=== PATIENT | female | born 1970 | race Caucasian/White ===

== ENCOUNTER 2019-07-07 08:09 | Emergency (ER) | payer BC ==
--- NOTE | 2019-07-07 08:47 | ERPHSYRPT ---
- History of Present Illness Time Seen by Provider: 07/07/19 08:30 Source: patient, family Exam Limitations: no limitations Patient Subjective Stated Complaint: Pt states "I have been feeling off for awhile, I am having night sweats and my sugar has been all wonky." Triage Nursing Assessment: Pt presented alert and oriented X 3, skin pwd PT ambulates with an upright steady gait, able to speak in clear full sentences. Pt in no apparent respiratory distress. Physician History: 48 y/o white female presents with one month h/o feeling weak. this is not how she normally feels. pt lost 60 lbs on a keto diet. last week she reintroduced carbohydrates into her diet. pt denies depression. denies medication use. denies pain of any type. she does not have a pcp. she denies blood loss. she denies soa. Timing/Duration: week(s) (4) Severity: mild Associated Symptoms: weakness, No nausea, No vomiting, No abdominal pain, No shortness of breath, No chest pain, No syncope Allergies/Adverse Reactions: No Known Drug Allergies Allergy (Unverified 07/07/19 08:23) Home Medications: No Reportable Medications [No Reported Medications] 07/07/19 [History] Hx Tetanus, Diphtheria Vaccination/Date Given: No Hx Influenza Vaccination/Date Given: Yes Hx Pneumococcal Vaccination/Date Given: No Immunizations Up to Date: Yes - Review of Systems Constitutional: Weakness Eyes: No Symptoms Ears, Nose, & Throat: No Symptoms Respiratory: No Symptoms Cardiac: No Symptoms Abdominal/Gastrointestinal: No Symptoms Genitourinary Symptoms: No Symptoms Musculoskeletal: No Symptoms Skin: No Symptoms Neurological: No Symptoms Psychological: No Symptoms Endocrine: No Symptoms Hematologic/Lymphatic: No Symptoms Immunological/Allergic: No Symptoms All Other Systems: Reviewed and Negative - Past Medical History Pertinent Past Medical History: No Neurological History: No Pertinent History ENT History: No Pertinent History Cardiac History: No Pertinent History Respiratory History: No Pertinent History Endocrine Medical History: No Pertinent History Musculoskeletal History: No Pertinent History GI Medical History: No Pertinent History History: No Pertinent History Psycho-Social History: No Pertinent History Female Reproductive Disorders: No Pertinent History - Past Surgical History Past Surgical History: Yes Neuro Surgical History: No Pertinent History Cardiac: No Pertinent History Respiratory: No Pertinent History Gastrointestinal: No Pertinent History Genitourinary: No Pertinent History Musculoskeletal: No Pertinent History Female Surgical History: No Pertinent History Other Surgical History: c section - Social History Smoking Status: Current every day smoker How long have you smoked: years Exposure to second hand smoke: Yes Drug Use: none Patient Lives Alone: No - Female History Hx Last Menstrual Period: menopause Hx Now: No - Nursing Vital Signs Nursing Vital Signs: Initial Vital Signs Temperature 97.9 F 07/07/19 08:18 Pulse Rate 92 H 07/07/19 08:18 Respiratory Rate 16 07/07/19 08:18 Blood Pressure 134/89 07/07/19 08:18 O2 Sat by Pulse Oximetry 100 07/07/19 08:18 Pain Scale Pain Intensity 0 - Physical Exam General Appearance: no apparent distress, alert, anxiety Eye Exam: PERRL/EOMI, eyes nml inspection Ears, Nose, Throat Exam: normal ENT inspection, moist mucous membranes Neck Exam: normal inspection, non-tender, supple, full range of motion Respiratory Exam: normal breath sounds, lungs clear, airway intact, No chest tenderness, No respiratory distress Cardiovascular Exam: regular rate/rhythm, normal heart sounds, normal peripheral pulses Gastrointestinal/Abdomen Exam: soft, normal bowel sounds, No tenderness Pelvic Exam: not done Rectal Exam: not done Back Exam: normal inspection, normal range of motion, No CVA tenderness, No vertebral tenderness Extremity Exam: normal inspection, normal range of motion, pelvis stable Neurologic Exam: alert, oriented x 3, cooperative, 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 Skin Exam: normal color, warm, dry Lymphatic Exam: No adenopathy SpO2 Interpretation: normal SpO2: 100 O2 Delivery: Room Air - Course Nursing assessment & vital signs reviewed: Yes EKG Interpreted by Me: RATE (78), Sinus Rhythm, NORMAL AXIS, NORMAL INTERVALS, NORMAL QRS, Other (no comparison ekg) Ordered Tests: Active Orders 24 hr Category Date Time Status [employer] STAT Care 07/07/19 08:51 Active EKG-ER Only STAT Care 07/07/19 08:50 Active IV Insertion STAT Care 07/07/19 08:50 Active Pulse Oximetry (ED) STAT Care 07/07/19 08:50 Active CBC W DIFF Stat Lab 07/07/19 08:55 Completed CMP Stat Lab 07/07/19 08:55 Completed HCG,QUALITATIVE URINE Stat Lab 07/07/19 09:06 Completed NT PRO BNP Stat Lab 07/07/19 08:55 Completed TSH [TSH, 3RD Generation] Stat Lab 07/07/19 08:55 Completed UA W/RFX UR CULTURE Stat Lab 07/07/19 09:24 Completed Urine Triage Profile Stat Lab 07/07/19 09:24 Completed Medication Summary Discontinued Medications Generic Name Dose Route Start Last Admin Trade Name Driss PRN Reason Stop Dose Admin Sodium Chloride 1,000 mls @ 999 mls/hr 07/07/19 08:50 07/07/19 10:08 Sodium Chloride 0.9% 1000 Ml IV 07/07/19 09:50 Infused .Q1H1M STA Infusion Sodium Chloride Confirm 07/07/19 09:03 Sodium Chloride 0.9% 1000 Ml Administered 07/07/19 09:04 Dose 1,000 mls @ ud .ROUTE .[facility] Lab/Rad Data: Laboratory Result Diagrams 07/07/19 08:55 07/07/19 08:55 Laboratory Results 07/07/19 07/07/19 07/07/19 Range/Units 09:24 09:24 09:06 WBC (4.0-10.5) K/mm3 RBC (4.1-5.4) M/mm3 Hgb (12.0-16.0) gm/dl Hct (35-47) % MCV (78-100) fl MCH (26-32) pg MCHC (32-36) g/dl RDW (11.5-14.0) % Plt Count (150-450) K/mm3 MPV (7.5-11.0) fl Gran % (36.0-66.0) % Eos # (Auto) (0-0.5) Absolute Lymphs (auto) (1.0-4.6) Absolute Monos (auto) (0.0-1.3) Lymphocytes % (24.0-44.0) % Monocytes % (0.0-12.0) % Eosinophils % (0.00-5.0) % Basophils % (0.0-0.4) % Absolute Granulocytes (1.4-6.9) Basophils # (0-0.4) Sodium (137-145) mmol/L Potassium (3.5-5.1) mmol/L Chloride (98-107) mmol/L Carbon Dioxide (22-30) mmol/L Anion Gap (5-15) MEQ/L BUN (7-17) mg/dL Creatinine (0.52-1.04) mg/dL Estimated GFR ML/MIN Glucose (74-106) mg/dL Calcium (8.4-10.2) mg/dL Total Bilirubin (0.2-1.3) mg/dL AST (14-36) U/L ALT (0-35) U/L Alkaline Phosphatase (38-126) U/L NT-Pro-B Natriuret Pep (0-450) pg/mL Serum Total Protein (6.3-8.2) g/dL Albumin (3.5-5.0) g/dL TSH 3rd Generation (0.47-4.68) mIU/L Urine Color YELLOW (YELLOW) Urine Appearance CLEAR (CLEAR) Urine pH 6.0 (5-6) Ur Specific Kell 1.010 (1.005-1.025) Urine Protein NEGATIVE (Negative) Urine Ketones MODERATE (NEGATIVE) Urine Blood NEGATIVE (0-5) Fig[place]ero[place]/ul Urine Nitrite NEGATIVE (NEGATIVE) Urine Bilirubin NEGATIVE (NEGATIVE) Urine Urobilinogen NORMAL (0-1) mg/dL Ur Leukocyte Esterase TRACE (NEGATIVE) Urine WBC (Auto) 0-2 (0-5) /HPF Urine RBC (Auto) 0-2 (0-2) /HPF U Epithel Cells (Auto) FEW (FEW) /HPF Urine Bacteria (Auto) FEW (NEGATIVE) /HPF Urine Mucus (Auto) MODERATE (NEGATIVE) /HPF Urine Culture Reflexed NO (NO) Urine Glucose NEGATIVE (NEGATIVE) mg/dL Urine HCG, Qual NEGATIVE (Negative) Urine Opiates Level NEGATIVE (NEGATIVE) Ur Methadone NEGATIVE (NEGATIVE) Urine Barbiturates NEGATIVE (NEGATIVE) Ur Phencyclidine (PCP) NEGATIVE (NEGATIVE) Urine Amphetamine NEGATIVE (NEGATIVE) U Benzodiazepine Level NEGATIVE (NEGATIVE) Urine Cocaine NEGATIVE (NEGATIVE) Urine Marijuana (THC) NEGATIVE (NEGATIVE) 07/07/19 07/07/19 07/07/19 Range/Units 08:55 08:55 08:55 WBC 9.4 (4.0-10.5) K/mm3 RBC 4.23 (4.1-5.4) M/mm3 Hgb 13.2 (12.0-16.0) gm/dl Hct 39.3 (35-47) % MCV 92.9 (78-100) fl MCH 31.2 (26-32) pg MCHC 33.6 (32-36) g/dl RDW 15.0 H (11.5-14.0) % Plt Count 263 (150-450) K/mm3 MPV 9.7 H (7.5-11.0) fl Gran % 74.3 H (36.0-66.0) % Eos # (Auto) 0.16 (0-0.5) Absolute Lymphs (auto) 1.64 (1.0-4.6) Absolute Monos (auto) 0.55 (0.0-1.3) Lymphocytes % 17.5 L (24.0-44.0) % Monocytes % 5.9 (0.0-12.0) % Eosinophils % 1.7 (0.00-5.0) % Basophils % 0.6 (0.0-0.4) % Absolute Granulocytes 6.94 H (1.4-6.9) Basophils # 0.06 (0-0.4) Sodium 141 (137-145) mmol/L Potassium 3.5 (3.5-5.1) mmol/L Chloride 110 H (98-107) mmol/L Carbon Dioxide 27 (22-30) mmol/L Anion Gap 7.5 (5-15) MEQ/L BUN 7 (7-17) mg/dL Creatinine 0.50 L (0.52-1.04) mg/dL Estimated GFR > 60.0 ML/MIN Glucose 109 H (74-106) mg/dL Calcium 9.4 (8.4-10.2) mg/dL Total Bilirubin 0.40 (0.2-1.3) mg/dL AST 13 L (14-36) U/L ALT 16 (0-35) U/L Alkaline Phosphatase 72 (38-126) U/L NT-Pro-B Natriuret Pep 32.9 (0-450) pg/mL Serum Total Protein 7.0 (6.3-8.2) g/dL Albumin 3.9 (3.5-5.0) g/dL TSH 3rd Generation 0.859 (0.47-4.68) mIU/L Urine Color (YELLOW) Urine Appearance (CLEAR) Urine pH (5-6) Ur Specific Kell (1.005-1.025) Urine Protein (Negative) Urine Ketones (NEGATIVE) Urine Blood (0-5) Fig[place]ero[place]/ul Urine Nitrite (NEGATIVE) Urine Bilirubin (NEGATIVE) Urine Urobilinogen (0-1) mg/dL Ur Leukocyte Esterase (NEGATIVE) Urine WBC (Auto) (0-5) /HPF Urine RBC (Auto) (0-2) /HPF U Epithel Cells (Auto) (FEW) /HPF Urine Bacteria (Auto) (NEGATIVE) /HPF Urine Mucus (Auto) (NEGATIVE) /HPF Urine Culture Reflexed (NO) Urine Glucose (NEGATIVE) mg/dL Urine HCG, Qual (Negative) Urine Opiates Level (NEGATIVE) Ur Methadone (NEGATIVE) Urine Barbiturates (NEGATIVE) Ur Phencyclidine (PCP) (NEGATIVE) Urine Amphetamine (NEGATIVE) U Benzodiazepine Level (NEGATIVE) Urine Cocaine (NEGATIVE) Urine Marijuana (THC) (NEGATIVE) - Departure Departure Disposition: Home Clinical Impression: Dehydration, Weakness Condition: Stable Critical Care Time: No Referrals: DOCTOR,NO FAMILY [Primary Care Provider] - Additional Instructions: drink plenty of fluids. modify your ketodiet per your primary doctor
[2019-07-07] MEDS ORDERED: Sodium Chloride 0.9% 1000 ML 1,000 ML IV STA (08:50)
[2019-07-07 08:57] LABS: Absolute Neutrophil Ct (ANC) 6.94 (1.4-6.9); BASOPHIL % 0.6 % (0.0-0.4); Basophil (Absolute #) 0.06 (0-0.4); Eosinophil % 1.7 % (0.00-5.0); Eosinophil (Absolute #) 0.16 (0-0.5); Hematocrit 39.3 % (35-47); Hemoglobin 13.2 gm/dl (12.0-16.0); Lymphocyte (Absolute #) 1.64 (1.0-4.6); Lymphocytes % 17.5 % (24.0-44.0); Mean Cell Volume 92.9 fl (78-100); Mean Corpuscular Hemoglobin 31.2 pg (26-32); Mean Corpuscular Hgb Concent. 33.6 g/dl (32-36); Mean Platelet Volume 9.7 fl (7.5-11.0); Monocyte (Absolute #) 0.55 (0.0-1.3); Monocytes % 5.9 % (0.0-12.0); Neutrophil % 74.3 % (36.0-66.0); Platelet Count 263 K/mm3 (150-450); Red Blood Count 4.23 M/mm3 (4.1-5.4); White Blood Count 9.4 K/mm3 (4.0-10.5)
[2019-07-07] MEDS ORDERED: Sodium Chloride 0.9% 1000 ML 1,000 ML ONE (09:03)
[2019-07-07 09:08] VITALS: PULSE 77
[2019-07-07 09:33] LABS: Appearance CLEAR (CLEAR); Bacteria FEW /HPF (NEGATIVE); Bilirubin NEGATIVE (NEGATIVE); Blood NEGATIVE Ery/ul (0-5); Epithelial Cells FEW /HPF (FEW); Glucose NEGATIVE (NEGATIVE); Ketones MODERATE (NEGATIVE); Leukocyte Esterase TRACE (NEGATIVE); Mucus MODERATE /HPF (NEGATIVE); Nitrite NEGATIVE (NEGATIVE); Protein,Urine Dip NEGATIVE (Negative); RBC 0-2 /HPF (0-2); Urobilinogen NORMAL mg/dL (0-1); WBC 0-2 /HPF (0-5)
[2019-07-07 09:35] LABS: Amphetamine,Urine NEGATIVE (NEGATIVE); Barbiturate,Urine NEGATIVE (NEGATIVE); Benzodiazepine,Urine NEGATIVE (NEGATIVE); Cocaine,Urine NEGATIVE (NEGATIVE); Methadone,Urine NEGATIVE (NEGATIVE); Opiate,Urine NEGATIVE (NEGATIVE); PCP,Urine NEGATIVE (NEGATIVE); THC,Urine NEGATIVE (NEGATIVE)
[2019-07-07 09:39] LABS: ALBUMIN 3.9 g/dL (3.5-5.0); ALKALINE PHOSPHATASE 72 U/L (38-126); ANION GAP 7.5 MEQ/L (5-15); BLOOD UREA NITROGEN 7 mg/dL (7-17); CHLORIDE 110 mmol/L (98-107); Calcium 9.4 mg/dL (8.4-10.2); Carbon Dioxide 27 mmol/L (22-30); Glucose 109 mg/dL (74-106); Potassium 3.5 mmol/L (3.5-5.1); SGOT/AST 13 U/L (14-36); SGPT/ALT 16 U/L (0-35); SODIUM 141 mmol/L (137-145); TSH, 3RD Generation 0.859 mIU/L (0.47-4.68)
[2019-07-07 09:56] VITALS: BP 110/84; O2SAT 100
== END 2019-07-07 10:47 | disposition home or self-care (01) ==
LOC: ED 08:09
DX: E86.0 Dehydration (principal); R53.1 Weakness
CPT/HCPCS: 36000; 36415; 80053; 80307; 81001; 83880; 84443; 84703; 85025; 93005; 93041; 94760; 96360; 99284